=== PATIENT | male | born 1995 | race Hispanic/Latino ===

== ENCOUNTER 2017-11-20 10:48 | Inpatient (IN) | payer OTHER ==
[~2017-11-20] VITALS: Ht 167.6 cm; Wt 52.5 kg
[2017-11-20] MEDS ORDERED: IBUPROFEN 400 MG TABLET ONE (11:25)
[2017-11-20 14:22] VITALS: BP 131/65
[2017-11-20] MEDS ORDERED: MORPHINE SULFATE 2 MG/ML 1ML SYG IVP PRN (15:45)
[2017-11-20] MEDS: SODIUM CHLORIDE 0.9% 1000ML 1,000 ML IV SCH (16:23)
[2017-11-20 17:12] VITALS: BP 143/68
[2017-11-20 20:08] VITALS: BP 117/68
[2017-11-21] VITALS (25 sets, daily range): BP systolic 114–138; BP diastolic 58–89
[2017-11-21] MEDS ORDERED: CEFAZOLIN SODIUM 1 GM VIAL IVP PRN (13:30)
[2017-11-21] MEDS ORDERED: LIDOCAINE PF 2% 5ML ABBOJECT ONE (13:35)
[2017-11-21] MEDS ORDERED: MIDAZOLAM HCL 1 MG/ML 2ML VIAL ONE (13:36)
[2017-11-21] MEDS ORDERED: FENTANYL CITRATE PF 50 MCG/1 ML 2ML VIAL ONE (13:36)
[2017-11-21] MEDS ORDERED: PROPOFOL 10 MG/ML 20ML VIAL IV ONE (13:36)
[2017-11-21] MEDS ORDERED: ONDANSETRON HCL 4 MG/2 ML VIAL ONE (13:36)
[2017-11-21] MEDS ORDERED: ROCURONIUM 10MG/1ML SYR 10 MG/ML ML ONE (13:38)
[2017-11-21] MEDS ORDERED: GLYCOPYRROLATE 1 MG/5 ML SYRINGE ONE (13:38)
[2017-11-21] MEDS ORDERED: NEOSTIGMINE 5MG/5ML SYR IV ONE ×2 (13:38→16:05)
[2017-11-21] MEDS ORDERED: ROPIVACAINE 0.5% 5MG/ML 30ML IJ ONE (13:42)
[2017-11-21] MEDS ORDERED: KETAMINE 50MG/ML SYRINGE 50 MG/ML DISP.SYRIN IV ONE (13:43)
[2017-11-21] MEDS ORDERED: FAMOTIDINE/PF 20 MG/2 ML VIAL IV ONE (13:43)
[2017-11-21] MEDS ORDERED: SODIUM CHLORIDE 0.9% 10 ML VIAL ONE (13:53)
[2017-11-21] MEDS ORDERED: LACTATED RINGERS 1000ML 1,000 ML IV ONE (13:54)
[2017-11-21 13:55] LABS: HEMATOCRIT 42.5 % (42-54); MEAN CORPUSCULAR HEMOGLOBIN 26.4 pg (27.0-33.0); MEAN CORPUSCULAR HGB CONC 31.9 g/dL (32.0-36.0); MEAN CORPUSCULAR VOLUME 82.8 fL (80-100); NUCLEATED RED BLOOD CELLS 0.1 % (0.0-0.19); PLATELET COUNT (AUTO) 159 K/uL (130-400); RED BLOOD CELL COUNT(AUTO) 5.13 MIL/uL (4.50-6.20); RED CELL DISTRIBUTION WIDTH 14.1 % (11.0-15.5); WHITE BLOOD COUNT (AUTO) 6.5 K/uL (4.8-10.8)
[2017-11-21 14:03] LABS: POTASSIUM 3.8 mmol/L (3.5-5.1)
[2017-11-21] MEDS ORDERED: PROMETHAZINE HCL 25 MG/ML 1ML AMPULE IM ONE (14:04)
[2017-11-21 14:13] LABS: INR 1.02 (0.85-1.15); PARTIAL THROMBOPLASTIN TIME 29.8 SEC (26.3-35.5); PROTHROMBIN TIME 10.7 SEC (9.6-11.6)
[2017-11-21] MEDS ORDERED: FENTANYL CITRATE PF 50 MCG/1 ML 5ML AMP IV ONE (14:24)
[2017-11-21] MEDS ORDERED: DEXAMETHASONE SOD PHOSPHATE 10MG/ML 1ML VIAL ONE (14:48)
[2017-11-21] MEDS ORDERED: MEPERIDINE-PF 25 MG/ML SYG ONE (16:47)
[2017-11-21] MEDS: SODIUM CHLORIDE 0.9% 1000ML 1,000 ML IV SCH (18:07)
[2017-11-21] MEDS: CEFAZOLIN SODIUM 1 GM VIAL IVP SCH (20:49)
[2017-11-21] MEDS: ACETAMINOPHEN-CODEINE 300/30MG TAB PO PRN (21:03)
[2017-11-22 04:52] VITALS: BP 112/62
[2017-11-22] MEDS: CEFAZOLIN SODIUM 1 GM VIAL IVP SCH (05:44)
[2017-11-22 08:00] VITALS: BP 134/63
[2017-11-22] MEDS: ACETAMINOPHEN-CODEINE 300/30MG TAB PO PRN (08:46)
[2017-11-22 11:00] VITALS: BP 132/77
[2017-11-22] MEDS ORDERED: TYL3B PO (13:37)
[2017-11-22] MEDS ORDERED: DOCU240C25 PO (13:37)
== END 2017-11-22 16:39 | disposition home or self-care (01) | DRG 517 ==
LOC: EDH 10:48 → OBSVTOIN 10:49 → EDHIP 10:49 → 4BH 13:57
PROVIDERS: ADMIT Internal Medicine; ATTEND Internal Medicine
PROC: 0PSB04Z Reposition Left Clavicle with Internal Fixation Device, Open Approach (ICD-10-PCS; principal; 2017-11-21 14:11)
PROC: 3E0234Z Introduction of Serum, Toxoid and Vaccine into Muscle, Percutaneous Approach (ICD-10-PCS; 2017-11-21 14:11)
DX: S42.022A Displaced fracture of shaft of left clavicle, initial encounter for closed fracture (principal); X58.XXXA Exposure to other specified factors, initial encounter; Y92.322 Soccer field as the place of occurrence of the external cause; Y93.66 Activity, soccer; Y99.8 Other external cause status; Z23 Encounter for immunization
CPT/HCPCS: 36415; 73030; 76000; 80048; 85027; 85610; 85730; A4218; G0008; J0690; J1100; J2001; J2175; J2250; J2405; J2550; J2704; J2710; J2795; J3010; J3490; J7030; J7120; Q2038